=== PATIENT | female | born 1985 | race African-American/Black ===

== ENCOUNTER 2024-02-20 14:15 | Emergency (ER) | payer MEDICAID ==
[~2024-02-20] VITALS: Ht 165.1 cm; Wt 102.7 kg
--- NOTE | 2024-02-20 14:55 | DVH ---
CHEST RADIOGRAPH Indication: r/o pneumonia Technique: Single frontal view of the chest was obtained Comparison: None FINDINGS: Lines and Tubes: None Lungs: No focal consolidation. Pleura: No effusion. No pneumothorax. Cardiomediastinal contours: Unremarkable Bones: No acute osseous abnormality. IMPRESSION: No acute cardiopulmonary disease.
--- NOTE | 2024-02-20 15:12 | ED.PDOC ---
SOB-HPI HPI Comments 38-year-old female patient presents to the clinic for a dry cough x2 weeks. Patient states that she feels as though she is congested but can not get the mucus out. Patient denies any fevers. Patient reports that the cough is increased when she exerts herself. Patient also complains of shortness of breath with exertion. Patient denies any history of asthma. Denies any ear pain or throat pain. Patient has been taking NyQuil. Patient reports the NyQ uil is not helping to decrease her cough. Patient denies taking any medications for blood pressure Chief Complaint: Cough Time Seen by MD: 14:35 Primary Care Provider: NONE Reviewed notes: Nurses Notes, Medications Mode of Arrival: Ambulatory Past Medical History PAST MEDICAL HISTORY: Denies Family History Family History: Reviewed,noncontributory to illness Constitutional: denies: chills, diaphoresis, fatigue, fever, malaise, sweats, weakness, others EENTM: denies: blurred vision, double vision, ear bleeding, ear discharge, ear drainage, ear pain, ear ringing, eye pain, eye redness, hearing loss, mouth pain, mouth swelling, nasal discharge, nose bleeding, nose congestion, nose pain, photophobia, tearing, throat pain, throat swelling, voice changes, others Respiratory: reports: cough (dry cough, non productive), SOB with excertion Cardiovascular: denies: chest pain, dizzy spells, diaphoresis, Dyspnea on exertion, edema, irregular heart beat, left arm pain, lightheadedness, palp itations, PND, syncope, others Gastrointestinal: denies: abdomen distended, abdominal pain, blood streaked bowels, constipated, diarrhea, dysphagia, difficulty swallowing, hematemesis, melena, nausea, poor appetite, poor fluid intake, rectal bleeding, rectal pain, vomiting, others Genitourinary: denies: abnormal vagina bleeding, burning, dyspareunia, dysuria, flank pain, frequency, hematuria, incontinence, pain, , vagina discharge, urgency, others Neurological: denies: dizziness, fainting, headache, left sided numbness, left sided weakness, numbness, paresthesia, pre-existing deficit, right sided numbness, right sided weakness, seizure, speech problems, tingling, tremors, weakness, others Musculoskeletal: denies: back pain, gout, joint pain, joint swelling, muscle pain, muscle stiffness, neck pain, others Integumetry: denies: bruises, change in color, change in hair/nails, dryness, laceration, lesions, lumps, rash, wounds, others Allergic/Immunocompromised: denies: Difficulty Healing, Frequent Infections, Hives, Itching, others Hematologic/Lymphatic: denies: anemia, blood clots, easy bleeding, easy br uising, swollen glands, others Endocrine: denies: excessive hunger, excessive sweating, excessive thirst, excessive urination, flushing, intolerance to cold, intolerance to heat, unexplained weight gain, unexplained weight loss, others Psychiatric: denies: anxiety, bipolar disorder, depression, hopeless, panic disorder, schizophrenia, sleepless, suicidal, others All Other Systems: Reviewed and Negative Physical Exam General Appearance: No Apparent Distress, Normal HEENT: Normal ENT Inspection, Pharynx Normal, TMs Normal Neck: Full Range of Motion, Non-Tender, Normal, Normal Inspection Respiratory: Chest Non-Tender, Lungs Clear, No Accessory Muscle Use, No Respiratory Distress, Normal Breath Sounds Cardiovascular: No Edema, No JVD, No Murmur, No Gallop, Normal Peripheral Pulses, Regular Rate/Rhythm Breast Exam: Deferred Gastrointestinal: No Organomegaly, Non Tender, No Pulsatile Mass, Normal Bowel Sounds, Soft Genitalia: Deferred Pelvic: Deferred Rectal: Deferred Extremities: No calf tenderness, Normal capillary refill, Normal inspection, Normal range of motion, Non-tender, No pedal edema Musculoskeletal : Apperance: Normal Neurologic: Alert, frame table operator II-XII nml as Tested, No Motor Deficits, Normal Affect, Normal Mood, No Sensory Deficits Cerebellar Function: Normal Reflexes: Normal Skin: Dry, Normal Color, Warm Lymphatic: No Adenopathy Was a procedure done? Was a procedure done?: No Differential Dx Differential Diagnosis: Asthma, Bronchitis, Pneumonia, Sinusitis, Pharyngitis, URI X-Ray, Labs, Meds, VS Vital Signs Date Time Temp Pulse Resp B/P (MAP) Pulse Ox O2 Delivery O2 Flow Rate FiO2 02/20/24 15:38 17 97 Room Air* 0 21 02/20/24 15:37 98.8 86 17 157/76 (103) 97 98.8 02/20/24 14:29 16 98 Room Air* 0 21 02/20/24 14:29 98.0 88 16 132/80 97 98 PATIENT: NELLI SALCIDOCT: [id number]: [id number] : 1985 LOC: ER ROOM / BED: / AGE / SEX: 38 / F ADM STATUS: REG ER SERVICE 1425 ORDERING PHYSICIAN: BELINDA SCOTT PROCEDURE(s): CXR1 - CHEST XRAY 1 VIEW REASON: r/o pneumonia ORDER NUMBER(s): [id number], ACCESSION NUMBER(s): [id number] CHEST RADIOGRAPH Indication: r/o pneumonia Technique: Single frontal view of the chest was obtained Comparison: None FINDINGS: Lines and Tubes: None Lungs: No focal consolidation. Pleura: No effusion. No pneumothorax. Cardiomediastinal contours: Unremarkable Bones: No acute osseous abnormality. IMPRESSION: No acute cardiopulmonary disease. ATED BY: BETTY MARISCAL DO DICTATED DATE/TIME: 02/20/241452 SIGNED BY: BETTY MARISCAL DO SIGNED DATE/TIME: 02/20/241452 CC: X-Ray, Labs, Meds, VS Comment Patient advised to take medications as prescribed. Patient advised of side effect of medications. Patient advised to rinse mouth out after use of inhaler. Patient advised to increase fluid intake. Patient to return to the emergency room if symptoms do not improve On re-evaluation patient has symptomatic improvement. Patient is stable for discharge at this time. All test results and diagnostic imaging have been interpreted. All diagnostic findings, discharge care, and education instruction provided to the patient. Follow-up with PCP in 2-3 days Patient verbalized understanding, discharge instructions and agrees to treatment plan Vital signs are stable Patient is ambulatory Patient advised of which symptoms necessitate a return visit to the emergency room. Patient to return emergency room for any new worsening symptoms. Patient is aware that the purpose of this visit is for an acute medical emergency requiring emergent stabilization. Chronic conditions, including malignancies have not been ruled out. Patient is instructed to follow up with PCP as directed for continued care and workup. If unable to arrange follow up, patient is to return to the emergency room for reassessment. Patient was given verbal and written discharge instructions and acknowledges understanding Time of 1ST Reevaluation: 15:12 Reevaluation 1ST: Improved Patient Education/Counseling: Diagnosis, Treatment, Prognosis, Need For Follow Up Family Education/Counseling: No Family Present Departure 1 Departure Time of Disposition: 15:23 Impression: Primary Impression: Bronchitis Disposition: 01 HOME / SELF CARE / HOMELESS Condition: Stable e-Prescriptions Albuterol Sulfate (Albuterol Sulfate Hfa) 108 Mcg/Act Aer 108 MCG IN Q4HP PRN for 30 Days, #1 AER 0 Refills Prov: ELLA YOU 02/20/24 [id number] (Bromphen/Pseudoephedrine 30-2-10 mg/5Ml) 1 Syp Syp 10 ML PO Q4HR for 10 Days, #600 ML Prov: ELLA YOU 02/20/24 Discharged With: Self Critical Care Note Critical Care Time?: No Stability Stability form required: No Heart Score Heart Score: Heart Score Response (Comments) Value History N/A 0 EKG N/A 0 Age N/A 0 Risk Factors N/A 0 Troponin N/A 0 Total [address] [employer] Feb 20, 2024 15:12
[2024-02-20] MEDS ORDERED: PSEU1SYP6 PO (15:26)
[2024-02-20] MEDS ORDERED: ALBU108A5 IN (15:26)
[2024-02-20 15:37] VITALS: BP 157/76; PULSE 86; TEMP 98.8
[2024-02-20 15:38] VITALS: RESP 17; O2SAT 97
== END 2024-02-20 15:39 | disposition home or self-care (01) ==
LOC: ER 14:15
DX: J40 Bronchitis, not specified as acute or chronic (principal)
CPT/HCPCS: 71045